=== PATIENT | male | born 1945 | race Caucasian/White ===

== ENCOUNTER → 2018-12-19 14:29 | Outpatient (CLI) | payer MEDICARE, OTHER, SELFPAY ==
--- NOTE | 2018-12-19 14:32 | DI.RAD.S_ITS ---
PROCEDURE: XR CHEST 2V INDICATIONS: cough TECHNIQUE: 2 views of the chest were acquired. COMPARISON: [facility], CT, PE STUDY (CTA CHEST), 04/27/2016, 6:47. [facility], CR, CHEST 1 VIEW, 04/27/2016, 6:07. FINDINGS: Surgical changes and devices: Postoperative change of the left shoulder is seen. Lungs and pleura: An incomplete inspiratory result is noted, causing a crowded appearance to the lung markings. No focal infiltrates are seen. No pneumothorax or significant pleural effusions are seen. Mediastinum: The cardiac contours are within normal limits. The aorta demonstrates calcification and tortuosity. Bones and chest wall: No suspicious bony abnormalities. Age-appropriate bony degenerative changes are seen. Soft tissues appear unremarkable. IMPRESSION: Limited chest study demonstrating no acute cardiopulmonary abnormality. Dictated by: Bib Felipe M.D. on 12/19/2018 at 13:48 Approved by: Bib Felipe M.D. on 12/19/2018 at 13:50
== END ==
PROVIDERS: PCP Family Medicine; Visit Provider Physician Assistant
DX: R05 Cough (principal)
CPT/HCPCS: 71046

== ENCOUNTER 2019-04-26 15:57 | Emergency (ER) | payer MEDICARE, OTHER, SELFPAY ==
[2019-04-26 16:05] VITALS: BP 142/78; PULSE 68; RESP 18; TEMP 36.9; O2SAT 98
--- NOTE | 2019-04-26 17:14 | PC.NURSE ---
Family member pokes head out of door and asked how long it will be to see a Doctor. informed that we had multiple pts come in at once and that this patient is 2 in line to be seen. Verbalizes understanding and returns to room
--- NOTE | 2019-04-26 22:44 | ED.DENTAL ---
HPI - Dental/Oral <ELIF Jacobson - Last Filed: 04/26/19 23:05> General Chief complaint: Dental/Oral Stated complaint: Right side facial swelling, thinks abcessed tooth Time Seen by Provider: 04/26/19 17:01 Source: patient Mode of arrival: ambulatory Limitations: no limitations History of Present Illness HPI Narrative: This is 73-year-old male, nonsmoker, presents with spouse with chief complain of right-sided face swelling, throbbing pain, mild nausea and chills for last 2 days. The patient reports he had problematic to for last few years. He once had periodontal abscess in the past. The patient has an appointment with oral surgeon, Dr. Walters tomorrow but was concerned and did not want to wait till tomorrow's appointment. The patient denies fever, vomiting. 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 According to the patient, he is unable to tolerate amoxicillin due to GI symptoms. Per his GI specialist not to take clindamycin for Augmentin in the future for ongoing colitis and to prevent C diff infection. Related Data Home Medications Medication Instructions Recorded Confirmed vedolizumab 300 mg intravenous 300 mg IV ONCE 12/13/18 12/13/18 solution hydrocodone-acetaminophen 1 - 2 tab PO Q4-6H PRN 04/26/19 04/26/19 Previous Rx's Medication Instructions Recorded aspirin 81 mg PO QDAY #30 tab 04/27/16 hydrocodone-acetaminophen [[place]] 1 tab PO Q6H PRN #7 tab 04/26/19 penicillin V potassium 500 mg PO Q6H 7 Days #28 tab 04/26/19 Allergies Allergy/AdvReac Type Severity Reaction Status Date / Time clindamycin Allergy Severe Anaphylaxis Verified 12/13/18 11:58 Review of Systems <ELIF Jacobson - Last Filed: 04/26/19 23:05> Review of Systems ROS Unobtainable: All systems reviewed & are unremarkable except as noted in HPI and below PFSH <ELIF Jacobson - Last Filed: 04/26/19 23:05> Medical History No significant past surgical history (Acute) Ulcerative colitis (Chronic) Periodontal abscess (Resolved) Social History Smoking Status: Never smoker Social History Smoking Status: Never smoker Exam <ELIF Jacobson - Last Filed: 04/26/19 23:05> Narrative Exam Narrative: General appearance: well developed, well nourished, in no acute distress. Head: normocephalic, atraumatic, no scalp lesions, non-tender. Right-sided cheek with mild erythema, edema, warmth. Eye: pupil equal, round. EOMI. Nose: nares patent. Oral: mucosa moist. R upper posterior column with a small lesion in yellow color. There is no obvious drainage noted. Neck/Thyroid: neck supple, full range of motion, no visible masses. No cervical adenopathy. Skin: no suspicious rashes, lesions over visible areas. Warm and dry. Heart: no clubbing, no cyanosis, no edema. Lungs: Breathing even and unlabored. No stridor. No accessory muscles used. Chest: normal shape and expansion. Abdomen: non-obese, non-distended. Neurologic: alert and oriented. Cognitive exam, INTRAMURAL DIRECTOR and PNS grossly intact on informal exam. Psych: good eye contact, normal affect. Initial Vital Signs Initial Vital Signs: Vital Signs Temperature 98.5 F 04/26/19 16:05 Pulse Rate 68 04/26/19 16:05 Respiratory Rate 18 04/26/19 16:05 Blood Pressure 142/78 H 04/26/19 16:05 Pulse Oximetry 98 04/26/19 16:05 <Ayleen Alves DO - Last Filed: 04/29/19 10:17> Initial Vital Signs Initial Vital Signs: Vital Signs Temperature 98.5 F 04/26/19 16:05 Pulse Rate 68 04/26/19 16:05 Respiratory Rate 18 04/26/19 16:05 Blood Pressure 142/78 H 04/26/19 16:05 Pulse Oximetry 98 04/26/19 16:05 Course <LEIF Jacobson - Last Filed: 04/26/19 23:05> Vital Signs - 8 hr 04/26/19 16:05 Temperature 98.5 F Pulse Rate 68 Respiratory Rate 18 Blood Pressure 142/78 H Pulse Oximetry 98 <Ayleen Alves DO - Last Filed: 04/29/19 10:17> Vital Signs - 8 hr 04/26/19 16:05 Temperature 98.5 F Pulse Rate 68 Respiratory Rate 18 Blood Pressure 142/78 H Pulse Oximetry 98 [facility] - Dental/Oral <ELIF Jacobson - Last Filed: 04/26/19 23:05> Differential Diagnosis Likely gingival abscess, dental caries, dental abscess and other (periodontal abscess) Medical Records Attestation: I reviewed the patient's medical records. Lab Data Attestation: I reviewed the patient's lab results. [facility] Narrative Medical decision making narrative: The patient with history of dental problems in the past presents with right-sided throbbing facial pain, swelling, redness. Physical exam dental caries/periodontal disease. Patient has a follow-up appointment with Dr. Walters, oral surgeon, tomorrow for an evaluation. Patient does not have fever, cervical lymphadenopathy, nontoxic appearance at this time. Patient had limited antibiotic medication treatment options due to his GI history of colitis, diarrhea. Patient was started on penicillin VK and advised to follow up with oral surgeon tomorrow as scheduled. Patient provided hydrocodone for pain management due to patient unable to take NSAIDs and narcotic precautions were discussed. Return precautions were discussed with the patient and no further questions were expressed at this time. Discharge Plan Departure Patient Disposition: Home Clinical Impression: Dental infection Discharge Date/Time: 04/26/19 17:48 Interventions: ED Discharge Assessment Last Done: 04/26/19 17:48 Instructions: DI for Dental Pain Activity Restrictions/Additional Instructions: You have been diagnosed with [dental infection. Please start antibiotic medication as soon as possible. The hydrocodone medication will cause drowsiness and constipation so please do not drive, drink alcohol, or operate heavy equipment and take high-fiber diets]. What to do: *Take your medications as directed. Penicillin prescription has been transmitted to [facility] in [place]. Please complete you're antibiotic medications unless you develop an allergy reaction. *Follow up with your primary care provider in 2-3 days, call for an appointment. Please follow up with oral surgeon tomorrow as scheduled for an evaluation. Let them know you were seen in the ED and that we asked you to be seen in follow up. *Return to ED if you have any new, worsening, or concerning symptoms, such as [increasing pain, swelling, redness, fever/chills, chest pain, breathing difficulty, any acute concerns]. Prescriptions: New hydrocodone-acetaminophen [[place]] 5-325 mg tablet 1 tab PO Q6H PRN (Reason: pain) Qty: 7 RF: 0 penicillin V potassium 500 mg tablet 500 mg PO Q6H 7 Days Qty: 28 RF: 0 No Action Entyvio 300 mg recon soln 300 mg IV ONCE RF: 0 aspirin 81 MG tablet,delayed release (DR/EC) 81 mg PO QDAY Qty: 30 RF: 0 hydrocodone-acetaminophen 5-325 mg tablet 1 - 2 tab PO Q4-6H PRN (Reason: pain) RF: 0 Referrals: [facility] [Outside] <Ayleen Alves DO - Last Filed: 04/29/19 10:17> Cosign ED Attending Jose Miguel Attestation: I was immediately available in the department for consultation. Documentation has been reviewed. I agree with assessment and plan.
== END 2019-04-26 17:48 | disposition home or self-care (01) ==
PROVIDERS: Emergency Provider Nurse Practitioner Family; PCP Family Medicine
DX: K04.7 Periapical abscess without sinus (principal)
CPT/HCPCS: 99282

== ENCOUNTER → 2019-08-25 10:48 | Outpatient (CLI) | payer MEDICARE, OTHER, SELFPAY ==
--- NOTE | 2019-08-25 11:10 | DI.CT.S_ITS ---
PROCEDURE: CT ABDOMEN PELVIS W CON INDICATIONS: Ulcerative colitis, unspecified, without complicat TECHNIQUE: After the administration of oral and intravenous contrast, 5 mm thick sections acquired from the diaphragms to the symphysis. 5 mm thick coronal and sagittal reformats were performed. For radiation dose reduction, the following was used: automated exposure control, adjustment of mA and/or kV according to patient size. COMPARISON: None. FINDINGS: Image quality: Excellent. ABDOMEN: Lung bases: Lung bases are clear. Heart size is normal. Solid organs: Liver is normal in size and enhancement. Punctate gallstone image 31/2 without evidence of acute cholecystitis. Biliary system is non-dilated. Pancreas enhances normally. Spleen is normal in size and enhancement. No adrenal nodules. Possible punctate calculus seen in the inferior pole the right kidney on image 43/2. Simple appearing renal cyst measuring 6 cm image 34/2. No hydronephrosis. Ureters appear nondilated. Peritoneum and bowel: Possible low-grade distal esophageal wall thickening which could be false accentuated by collapsed state and recommend clinical correlation. Incidental colonic diverticulosis benefits of obstruction. Greater than expected pericolonic fat surrounding the sigmoid colon and rectosigmoid junction which can be seen in setting of chronic inflammatory bowel disease. Normal appendix. No free fluid or air. Nodes and vessels: No retroperitoneal or mesenteric adenopathy. Aorta and inferior vena cava are normal in caliber. Miscellaneous: Tiny 1-2 cm umbilical hernia containing decompressed bowel loop image 58 series 2. PELVIS: Genitourinary: Bladder wall thickness is normal. Miscellaneous: Small fat-containing left inguinal hernia Bones: No suspicious bony lesions. Mild L1 compression fracture. Diffuse spondylosis and facet arthropathy. Diffuse osteopenia and partial bilateral ankylosis seen at the sacroiliac joints IMPRESSION: Tiny umbilical hernia containing bowel loops which appear decompressed. Recommend clinical correlation to point tenderness. Incidental cholelithiasis without evidence of acute inflammation Nonobstructive punctate right renal calculus Incidental colonic diverticulosis Partial ankylosis of the sacroiliac joints Prominent pericolonic fat surrounding the distal colon which can be seen in setting of chronic inflammatory bowel disease. Currently, no bowel wall thickening identified. Dictated by: Josse Villegas M.D. on 08/25/2019 at 12:06 Approved by: Josse Villegas M.D. on 08/25/2019 at 12:13
== END ==
PROVIDERS: PCP Family Medicine; Visit Provider Internal Medicine Gastroenterology
DX: K51.90 Ulcerative colitis, unspecified, without complications (principal); R74.0 Nonspecific elevation of levels of transaminase and lactic acid dehydrogenase [LDH]; K57.90 Diverticulosis of intestine, part unspecified, without perforation or abscess without bleeding; K40.90 Unilateral inguinal hernia, without obstruction or gangrene, not specified as recurrent; K80.20 Calculus of gallbladder without cholecystitis without obstruction; N20.0 Calculus of kidney; M43.28 Fusion of spine, sacral and sacrococcygeal region
CPT/HCPCS: 74177; Q9967

== ENCOUNTER 2022-03-31 12:22 | Emergency (ER) | payer MEDICARE, OTHER, SELFPAY ==
[2022-03-31 12:58] VITALS: BP 144/71; PULSE 76; RESP 15; TEMP 37.6; O2SAT 94; BMI 31.3
== END 2022-03-31 13:47 | disposition left against medical advice (07) ==
PROVIDERS: Emergency Provider Emergency Medicine; PCP Family Medicine
CPT/HCPCS: 99281

== ENCOUNTER → 2022-04-01 08:26 | Outpatient (CLI) | payer MEDICARE, OTHER, SELFPAY ==
[2022-04-01 08:54] LABS: COVID19 -Nasal RAPID POSITIVE (Negative)
== END ==
PROVIDERS: PCP Family Medicine; Visit Provider Physician Assistant
DX: U07.1 COVID-19 (principal)
CPT/HCPCS: 87635

== ENCOUNTER → 2024-09-20 15:21 | Outpatient (CLI) | payer MEDICARE, OTHER, SELFPAY ==
[2024-09-20 16:17] LABS: Influenza A - CEPHEID Flu A NEGATIVE (NEGATIVE); Influenza B - CEPHEID Flu B NEGATIVE (NEGATIVE); Respiratory Syncytial Virus Negative (Negative)
[2024-09-20 16:20] LABS: COVID-19 CEPHEID 4-PLEX PCR Negative (Negative)
== END ==
PROVIDERS: PCP Family Medicine; Visit Provider Nurse Practitioner Family
DX: J02.9 Acute pharyngitis, unspecified (principal); R05.1 Acute cough
CPT/HCPCS: 0241U; 87070

== ENCOUNTER → 2024-09-20 15:43 | Outpatient (CLI) | payer MEDICARE, OTHER, SELFPAY ==
--- NOTE | 2024-09-20 15:44 | DI.RAD.S_ITS ---
PROCEDURE: XR CHEST 2V INDICATIONS: Cough TECHNIQUE: 2 views of the chest were acquired. COMPARISON: [facility], CR, XR CHEST 2V, 12/19/2018, 14:39. FINDINGS: Surgical changes and devices: None. Lungs and pleura: Lungs are clear. No pleural effusions or pneumothorax. Mediastinum: Mediastinal contours are normal. Heart size is normal. Bones and chest wall: No suspicious bony abnormalities. Soft tissues appear unremarkable. IMPRESSION: No acute cardiopulmonary pathology. Dictated by: Chung Samaniego M.D. on 09/20/2024 at 16:19 Approved by: Chung Samaniego M.D. on 09/20/2024 at 16:20
== END ==
PROVIDERS: PCP Family Medicine; Referring Provider Nurse Practitioner Family; Visit Provider Nurse Practitioner Family
DX: R05.9 Cough, unspecified (principal)
CPT/HCPCS: 0241U; 71046; 87070

== ENCOUNTER → 2024-10-30 18:14 | Outpatient (ROUT) | payer MEDICARE, OTHER, SELFPAY | PROVIDERS: PCP Family Medicine; Visit Provider Dermatology | DX: S30.93XA Unspecified superficial injury of penis, initial encounter (principal) | CPT/HCPCS: 87070; 87075; 87102; 87205 ==